=== PATIENT | male | born 1960 | race Caucasian/White ===

== ENCOUNTER 2017-10-13 19:00 | Inpatient (IN) | payer MEDICAID ==
[~2017-10-13] VITALS: Ht 172.7 cm; Wt 79.8 kg
[~2017-10-13 19:00] MED LIST: AMIT100T2 PO; ARIP1TAB7 PO; BENA40TA7 PO; BENAZAPRIL; CARI-277 PO; HYDR-1421; HYDR-3546 PO; HYDR25TA4 PO; LORA-622 PO; LORA-654 PO; LORA1TAB12; MELO1TAB56 PO; PAR20T PO; PAXIL; SOMA
[2017-10-13] MEDS ORDERED: NALOXONE HCL 0.4 MG/ML VIAL ONE (19:23)
[2017-10-13] MEDS ORDERED: ACETYLCYSTEINE 200MG/ML IV SOLN 30ML IV ONE (19:29)
[2017-10-13 19:34] LABS: Basophils # (auto) 0 uL; Basophils % (auto) 0.1 % (0.0-2.0); Eosinophils # (auto) 0 uL; Hematocrit 41.5 % (41.0-53.0); Hemoglobin 14.2 g/dL (13.5-17.5); Lymphocytes # (auto) 1.3 uL; Lymphocytes % (auto) 11.7 % (10.0-50.0); Mean Corpuscular Hgb Conc. 34.3 g/dL (32.0-36.0); Mean Corpuscular Volume 84.7 fL (80.0-100.0); Monocytes # (auto) 0.7 uL; Monocytes % (auto) 6.3 % (0.0-12.0); Neutrophils # (auto) 9.2 uL; Neutrophils % (auto) 81.9 % (37.0-80.0); Nucleated Red Blood Cells % 0.1 %; Platelet Count (auto) 291 10^3/uL (140-450); Red Cell Distribution Width 13.6 % (11.8-14.3); White Blood Cell 11.2 10^3/uL (4.4-10.8)
[2017-10-13] MEDS ORDERED: ONDANSETRON HCL 4 MG/2 ML VIAL IV ONE (19:45)
[2017-10-13] MEDS ORDERED: NALOXONE HCL 0.4 MG/ML VIAL IV ONE (19:45)
[2017-10-13] MEDS ORDERED: FLUMAZENIL 0.1 MG/ML INJ 10ML MDV IV ONE (19:45)
[2017-10-13] MEDS ORDERED: SODIUM CHLORIDE 0.9% 1,000 ML IV ONE (19:45)
[2017-10-13 19:54] LABS: Albumin 4.3 g/dL (3.4-5.0); Anion Gap 10 (5-15); BUN/Creatinine Ratio 14.2; Blood Alcohol < 3.0 mg/dL (0-5); Blood Urea Nitrogen 21 mg/dL (7-18); Calcium 8.8 mg/dL (8.5-10.1); Carbon Dioxide 23 mmol/L (21-32); Chloride 107 mmol/L (98-107); GFR African American 63 mL/min; GFR Non-African American 52 mL/min; Glucose 163 mg/dL (74-106); Magnesium 1.9 mg/dL (1.6-2.6); Potassium 4.1 mmol/L (3.5-5.1); Sodium 140 mmol/L (136-145)
[2017-10-13 19:57] LABS: Acetaminophen < 2.0 ug/mL (10-30); Salicylate 2.6 mg/dL (2.8-20.0)
[2017-10-13 20:02] LABS: Alanine Aminotransferase 23 U/L (16-61); Alkaline Phosphatase 66 U/L (45-117); Aspartate Aminotransferase 14 U/L (15-37); Bilirubin, Total 0.5 mg/dL (0.2-1.0); Total Protein 7.8 g/dL (6.4-8.2)
[2017-10-13 20:08] LABS: INR 0.92 (0.9-1.15); Partial Thromboplastin Time 22.6 sec (23.78-33.04); Prothrombin Time 9.9 sec (9.27-12.13)
[2017-10-13] MEDS ORDERED: IOHEXOL 300 MG/ML 75ml BOTTLE IJ ONE (20:28)
[2017-10-13 22:23] LABS: Urine Bacteria NONE SEEN /hpf (None Seen); Urine Blood Negative /uL (Negative); Urine Mucus FEW (None Seen); Urine Specific Gravity 1.042 (1.001-1.035); Urine WBC <1 /hpf (0 - 3)
[2017-10-13] MEDS ORDERED: PROMETHAZINE HCL 25 MG/ML 1ML ONE (22:32)
[2017-10-13 22:41] LABS: Alcohol, Urine < 3.0 mg/dL (0-5); Amphetamine Screen, Urine NEGATIVE (NEGATIVE); Barbiturate Scree,Urine NEGATIVE (NEGATIVE); Benzodiazephine Screen, Urine NEGATIVE (NEGATIVE); Cannabinoid Screen, Urine POSITIVE (NEGATIVE); Cocaine Screen, Urine NEGATIVE (NEGATIVE); Opiate Scree,Urine POSITIVE (NEGATIVE); Phencyclidine Screen, Urine NEGATIVE (NEGATIVE)
[2017-10-13] MEDS ORDERED: PROMETHAZINE HCL 25 MG/ML 1ML IV ONE (22:45)
[2017-10-14] MEDS ORDERED: ONDANSETRON ODT 4 MG TAB PO ONE (00:58)
[2017-10-14] MEDS ORDERED: ONDANSETRON HCL 4 MG/2 ML VIAL IV PRN (02:45)
[2017-10-14] MEDS ORDERED: NITROGLYCERIN 0.4 MG SL TAB SL PRN (02:45)
[2017-10-14] MEDS ORDERED: MORPHINE SULF(PF) 0.5MG/ML 10ML VIAL IV PRN (02:45)
[2017-10-14] MEDS: SODIUM CHLORIDE 0.9% 1,000 ML IV SCH ×2 (03:08→13:11)
[2017-10-14 06:39] LABS: Albumin 4.2 g/dL (3.4-5.0); Calcium 9.1 mg/dL (8.5-10.1)
[2017-10-14 06:43] LABS: BUN/Creatinine Ratio 16.1
[2017-10-14 06:45] LABS: Bilirubin, Total 0.6 mg/dL (0.2-1.0); Total Protein 7.2 g/dL (6.4-8.2)
[2017-10-14] MEDS ORDERED: LORazepam 2MG/ML-1ML VIAL IV ONE (08:30)
[2017-10-14] MEDS ORDERED: LORazepam 2MG/ML-1ML VIAL ONE (08:39)
[2017-10-14] MEDS ORDERED: HCTZ 25 MG TAB PO SCH (10:00)
[2017-10-14] MEDS ORDERED: PANTOPRAZOLE 40 MG TAB PO SCH (10:00)
[2017-10-14 18:00] VITALS: BP 143/91
[2017-10-14 20:28] VITALS: BP 138/81
[2017-10-14 23:14] VITALS: BP 138/81
== END 2017-10-15 00:10 | disposition home or self-care (01) | DRG 812 ==
LOC: ER 19:00 → EDBD 19:00 → TELE 19:01 → TELE-WESTW 10-14 17:24
PROVIDERS: ADMIT Nurse Practitioner; ATTEND Internal Medicine Pulmonary Disease
DX: T40.691A Poisoning by other narcotics, accidental (unintentional), initial encounter (principal); G92 Toxic encephalopathy; E11.22 Type 2 diabetes mellitus with diabetic chronic kidney disease; N18.3 Chronic kidney disease, stage 3 (moderate); F41.9 Anxiety disorder, unspecified; I12.9 Hypertensive chronic kidney disease with stage 1 through stage 4 chronic kidney disease, or unspecified chronic kidney disease; G89.29 Other chronic pain; M54.9 Dorsalgia, unspecified; Z82.0 Family history of epilepsy and other diseases of the nervous system; Z82.49 Family history of ischemic heart disease and other diseases of the circulatory system; Z80.6 Family history of leukemia; Y92.89 Other specified places as the place of occurrence of the external cause; Z79.899 Other long term (current) drug therapy
CPT/HCPCS: 36415; 51702; 70450; 71045; 74177; 80053; 80307; 80320; 80329; 81001; 82140; 83735; 83880; 84484; 85025; 85610; 85730; 93005; 96361; 96374; 96375; 99291; J2405; Q0162; Q9967